=== PATIENT | female | born 1975 | race African-American/Black ===

== ENCOUNTER → 2017-08-25 | Outpatient (CLI) | payer BC ==
--- NOTE | 2017-08-25 12:17 | KCIC ---
DATE: 08/25/2017 EXAM: MAMMO FREDO SCREENING BILATERAL HISTORY: Routine screening COMPARISON: 06/12/2013 This study was interpreted with the benefit of Computerized Aided Detection (CAD). The breast parenchyma shows scattered fibroglandular densities. Breast parenchyma level B. FINDINGS: 2-D and 3-D tomosynthesis imaging was performed in CC and MLO projections. No new or enlarging breast densities are seen. No suspicious microcalcifications are evident. IMPRESSION: There is no mammographic evidence of malignancy in either breast. BI-RADS CATEGORY: 1 NEGATIVE RECOMMENDED FOLLOW-UP: 12M 12 MONTH FOLLOW-UP PQRS compliance statement: Patient information was entered into a reminder system with a target due date for the next mammogram. Mammography is a sensitive method for finding small breast cancers, but it does not detect them all and is not a substitute for careful clinical examination. A negative mammogram does not negate a clinically suspicious finding and should not result in delay in biopsying a clinically suspicious abnormality. "Our facility is accredited by the [employer] Mammography Program."
== END | disposition home or self-care (01) ==
LOC: KCIC MAMMO 09:16
PROVIDERS: ATTEND Internal Medicine
DX: Z12.31 Encounter for screening mammogram for malignant neoplasm of breast (principal)
CPT/HCPCS: 77063; G0202; 77067

== ENCOUNTER → 2019-04-10 | Outpatient (CLI) | payer BC ==
[~2019-04-10] MED LIST: FERR325T14 PO; MULT1TAB52 PO
[2019-04-10 14:59] LABS: BASO # 0.1 x10^3/uL (0.0-0.2); BASO % 1 % (0-3); EOS % 0 % (0-3); HEMATOCRIT 28.6 % (36.0-47.0); HEMOGLOBIN 8.7 g/dL (12.0-15.5); LYMPH # 2.8 x10^3/uL (1.0-4.8); LYMPH % 45 % (24-48); MEAN CORPUSCULAR HEMOGLOBIN 20 pg (25-35); MEAN CORPUSCULAR HGB CONC 30 g/dL (31-37); MEAN CORPUSCULAR VOLUME 66 fL (79-100); MONO # 0.2 x10^3/uL (0.0-1.1); MONO % 4 % (0-9); NEUT # 3.1 x10^3uL (1.8-7.7); NEUT % 50 % (31-73); PLATELET COUNT 188 x10^3/uL (140-400); RED BLOOD COUNT 4.36 x10^6/uL (3.50-5.40); RED CELL DISTRIBUTION WIDTH 18.1 % (11.5-14.5); WHITE BLOOD COUNT 6.2 x10^3/uL (4.0-11.0)
[2019-04-10 15:00] LABS: BILIRUBIN,URINE NEGATIVE (NEG); CLARITY,URINE CLEAR; COLOR,URINE YELLOW; NITRITE,URINE NEGATIVE (NEG); PH,URINE 7.5; PROTEIN,URINE NEGATIVE (NEG-TRACE); UROBILINOGEN,URINE 0.2 mg/dL (0.2 mg/dL)
[2019-04-10 15:24] LABS: BACTERIA,URINE 0 /HPF (0-FEW); RBC,URINE 0 /HPF (0-2); SQUAMOUS EPITHELIAL CELL,UR OCC /LPF; WBC,URINE 0 /HPF (0-4)
[2019-04-10 15:25] LABS: ALBUMIN 3.6 g/dL (3.4-5.0); ALBUMIN/GLOBULIN RATIO 0.9 (1.0-1.7); CALCIUM 8.8 mg/dL (8.5-10.1); CREATININE 0.7 mg/dL (0.6-1.0); GFR 109.5; POTASSIUM 3.7 mmol/L (3.5-5.1); TOTAL BILIRUBIN 0.6 mg/dL (0.2-1.0); TOTAL PROTEIN 7.8 g/dL (6.4-8.2)
--- NOTE | 2019-04-10 15:32 | RAD ---
CHEST PA LATERAL History: Preop Comparison: February 16, 2012 Findings: 2 views of the chest are submitted. There is no infiltrate, pneumothorax, or effusion. Pericardial cardiac silhouette is within normal limits in size. Impression: 1. There is no radiographic evidence of acute cardiopulmonary disease. Electronically signed by: Dereck Holder MD (04/10/2019 3:29 PM) [id number]
[2019-04-10 15:53] LABS: % BANDS 3 % (0-9); % BASOS 2 % (0-3); % LYMPHS 32 % (24-48); % MONOS 3 % (0-10); % SEGS 60 % (35-66); ANISOCYTOSIS SLIGHT; HYPOCHROMIA MARKED; MICROCYTOSIS MARKED; PLT ESTIMATE ADEQUATE (ADEQUATE); POLYCHROMASIA SLIGHT
[2019-04-10 15:54] LABS: OVALOCYTES FEW
== END | disposition home or self-care (01) ==
LOC: SURGPAT 14:13
PROVIDERS: ATTEND Obstetrics & Gynecology
DX: Z01.818 Encounter for other preprocedural examination (principal); Z88.5 Allergy status to narcotic agent; Z88.0 Allergy status to penicillin; Z88.2 Allergy status to sulfonamides
CPT/HCPCS: 36415; 71046; 80053; 81001; 85007; 85025

== ENCOUNTER 2019-04-17 06:19 | Observation (INO) | payer BC ==
[2019-04-17] VITALS (7 sets, daily range): BP systolic 97–118; BP diastolic 51–67
[~2019-04-17] VITALS: Ht 152.4 cm; Wt 51.3 kg
[~2019-04-17 06:19] MED LIST changes: +BUPIVACAINE-EPI 0.25%-1:200000 MPF 30 ML VIAL. ONE; +CLINDAMYCIN 900MG PREMIX 50 ML IV PRN; +ESTROGENS, CONJ VAGINAL CREAM 30GM TUBE. ONE
[2019-04-17] MEDS ORDERED: ONDANSETRON PF 4 MG/2 ML VIAL. ONE (06:54)
[2019-04-17] MEDS ORDERED: LIDOCAINE 2% PF 5 ML VIAL. ONE (06:54)
[2019-04-17] MEDS ORDERED: DEXAMETHASONE SOD PHOS 4 MG/ML VIAL ONE ×2 (06:54→12:01)
[2019-04-17] MEDS ORDERED: ROCURONIUM 50 MG/5 ML VIAL. ONE (06:54)
[2019-04-17] MEDS ORDERED: PROPOFOL 20 ML IV ONE (06:54)
[2019-04-17] MEDS ORDERED: fentaNYL PF VIAL 100 MCG/2 ML VIAL ONE (06:55)
[2019-04-17] MEDS ORDERED: IV RINGERS,LACTATED 1000ML 1,000 ML IV SCH (07:00)
[2019-04-17] MEDS ORDERED: PROCHLORPERAZINE 10 MG/2 ML VIAL. IV PRN (07:00)
[2019-04-17] MEDS ORDERED: ONDANSETRON PF 4 MG/2 ML VIAL. IV PRN ×2 (07:00→09:45)
[2019-04-17] MEDS ORDERED: fentaNYL PF VIAL 100 MCG/2 ML VIAL IV PRN ×2 (07:00)
[2019-04-17] MEDS ORDERED: HYDROmorphone 2 MG/ML VIAL IV PRN (07:00)
[2019-04-17] MEDS ORDERED: LIDOCAINE 1% PF 2 ML VIAL. ID PRN (07:00)
[2019-04-17] MEDS ORDERED: MIDAZOLAM HCL/PF 2 MG/2 ML VIAL. ONE (07:17)
[2019-04-17] MEDS ORDERED: INDIGOTINDISULFONATE SODIUM 40 MG/5 ML AMPUL. IV ONE (07:30)
[2019-04-17] MEDS ORDERED: PHENYLEPHRINE in 0.9% NACL PF 1 MG/10 ML SYRINGE. IV ONE (09:36)
[2019-04-17] MEDS ORDERED: KETOROLAC 30 MG/ML INJ FOR OR. INJ ONE (09:36)
[2019-04-17] MEDS ORDERED: 0.9 % SODIUM CHLORIDE 10 ML DISP.SYRIN. IV PRN (09:45)
[2019-04-17] MEDS ORDERED: LACTULOSE 20 GM/30 ML SOLUTION. PO PRN (09:45)
[2019-04-17] MEDS ORDERED: diphenhydrAMINE HCL 25 MG CAPSULE PO PRN (09:45)
[2019-04-17] MEDS ORDERED: SIMETHICONE 80 MG TAB.CHEW PO PRN (09:45)
[2019-04-17] MEDS ORDERED: ZOLPIDEM 5 MG TABLET. PO PRN (09:45)
[2019-04-17] MEDS ORDERED: MORPHINE SULFATE 2 MG/ML VIAL. IV PRN (09:45)
[2019-04-17] MEDS ORDERED: MAG HYDROX/ALUMINUM HYD/SIMETH 30 ML ORAL.SUSP PO PRN (09:45)
[2019-04-17] MEDS ORDERED: MAGNESIUM HYDROXIDE 2,400 MG/30 ML ORAL.SUSP. PO PRN (09:45)
[2019-04-17] MEDS ORDERED: NALOXONE 0.4 MG/ML VIAL. IV PRN (09:45)
[2019-04-17] MEDS ORDERED: CALCIUM CARBONATE 500 MG TAB.CHEW PO PRN (09:45)
[2019-04-17] MEDS ORDERED: diphenhydrAMINE 50 MG/ML VIAL IV PRN (09:45)
[2019-04-17] MEDS ORDERED: oxyCODONE/APAP 5/325 1 TAB TABLET PO PRN (09:45)
--- NOTE | 2019-04-17 09:53 | PDOC ---
BRIEF OPERATIVE NOTE Date: Apr 17, 2019 Pre-Op Diagnosis menorrhagia, severe anemia, fibroids Post-Op Diagnosis same Procedure Performed LAVH/bilateral salpingectomy Surgeon Dr. Leticia Herrmann Radar Tester Chuy MENDOSA Anesthesiologist Dr. Moses Anesthesia Type: General Blood Loss 150cc IV Fluid 1L Urine Output 200cc clear via gar Specimens Obtained cervix, uterus, bilateral tubes Findings enlarged fibroid uterus, anterior bladder adhesions, normal bilateral ovaries Complications none Operative Note [id number] LETICIA HERRMANN MD Apr 17, 2019 09:53
[2019-04-17] MEDS: MORPHINE SULFATE 2 MG/ML VIAL. IV PRN ×2 (10:01→10:48)
--- NOTE | 2019-04-17 10:32 | OP ---
DATE OF SURGERY: 04/17/2019 PREOPERATIVE DIAGNOSES: Menorrhagia, severe anemia and fibroid uterus, failing endometrial ablation, status post myomectomy in the past as well. POSTOPERATIVE DIAGNOSES: Menorrhagia, severe anemia and fibroid uterus, failing endometrial ablation, status post myomectomy in the past as well. PROCEDURE: Laparoscopic-assisted vaginal hysterectomy, bilateral salpingectomy with adhesiolysis of her bladder to her uterus. SURGEON: Kate Herrmann MD. CHANNEL SALES MANAGER: NAVYA Cohen. ANESTHESIOLOGIST: Dr. Moses. ANESTHESIA: General. ESTIMATED BLOOD LOSS: 150 mL. URINE OUTPUT: 200 mL, clear via Gonzalez catheter. IV FLUIDS: 1 liter of Crystalloid. SPECIMENS: Cervix, uterus, bilateral tubes. FINDINGS: An enlarged fibroid uterus, anterior bladder adhesions. Normal bilateral ovaries. COMPLICATIONS: None. DESCRIPTION OF PROCEDURE: This patient was taken to the operating room where general anesthesia was placed. The patient was placed in a dorsal lithotomy position in [facility]. The patient's abdomen and vagina were prepped and draped in the normal sterile fashion and a Gonzalez had been inserted under sterile technique. Upon my arrival, a timeout was performed. She had received her preoperative antibiotics. Once everyone agreed, a bivalve speculum was placed in the patient's vagina. A single tooth tenaculum was used to grasp the anterior lip of the cervix. A 10 mL of 0.25% Marcaine with epinephrine was used to circumferentially inject around the cervix for both hemodissection and hemostatic purposes later. Once this was done, the Valtchev uterine manipulator was placed through the endocervical os, locked on the single tooth tenaculum and the bivalve speculum was then removed. Top gloves were discarded and changed. Attention was then turned to the abdomen where a small supraumbilical skin incision was made with the scalpel. A curved Esme was used to dissect through the subcuticular layer to the fascia. The 5 mm Visiport was used to directly enter the abdominal cavity. Opening patient pressure was 4 mmHg. Carbon dioxide gas was used to then appropriately insufflate the abdominal cavity to maintain a pressure of 15 mmHg. The patient was placed in Trendelenburg position and initial look was enlarged fibroid uterus, but no obvious bowel adhesions, so at this point right and left lower quadrant ports were placed after transilluminating the abdomen, finding an area clear of any vasculature and placing the 5 mm disposable trocar under direct visualization. Once they were in, 4-5 mL of air was used to insufflate the cuff. At this point, the camera was moved to the lateral port to look at the umbilical port. It was also in and clear, so it was also insufflated with the air on the trocar cuff. The camera was moved back to the midline. The left tube and ovary were elevated and were normal, going above the ovary, below the tube, doing a salpingectomy on this side, crossing the left uterine ovarian pedicle all the way to the left round ligament and starting the bladder flap on the left side. This was done exactly the same on the right, except there was no distal tube on the right. The right ovary was normal. There was just a stump from her previous tubal, so crossing the right round ligament and the right uterine ovarian pedicle and the right mesosalpinx under it was all crossed and then again going down and trying to meet that bladder flap. It was hard to see around the uterus due to the fibroids, and there were some adhesions, but I was able to get it down from the sides to make sure it was clear and get the uterine vessels on both sides and go down posteriorly hugging the cervix, making sure we were down, and we were getting the blood supply to the uterosacral. I was able to then get around once we did that and see some of the anterior bladder peritoneum and get around and take it down as well, but the uterus was blanched, it was free posteriorly, and it was down in back to the uterosacrals. The blood supply was achieved. So at this point, I decided to go vaginally. I removed all instruments from the abdomen and the legs were elevated and the attention was turned vaginally. The single tooth and Valtchev were removed. A weighted speculum was placed in the patient's vagina. Thyroid Rudy clamps were placed on the anterior and posterior lips of the cervix respectively. A scalpel was used to make a circumferential incision in the cervix, a 4 x 4 was used to gently push up the anterior bladder peritoneum. The posterior cul-de-sac was sharply entered with the curved Wells scissors, and 0 Vicryl stitch was used to secure the posterior peritoneum here to the vaginal cuff. Once this was done, the posterior cuff tag was tagged with a curved Esme clamp and the needle was cut and passed off. The short weighted speculum was removed and replaced with the long weighted Clay speculum in the posterior cul-de-sac. Curved Jerson clamps were placed x 2 on the left uterosacral ligament where they were doubly clamped with curved Heaneys, cut with Wells scissors and suture ligated x 2 with 0 Vicryl. Second one was taken through the vaginal cuff securing uterosacral ligament to the vaginal cuff, tagged with a straight Esme clamp and the needle was cut and passed off. This was done exactly the same on the patient's right side, double clamping the uterosacrals with curved Jerson's, cutting with Wells scissors, suture ligating x 2 with 0 Vicryl, taking the second one through the vaginal cuff and tagging it with a straight Esme clamp and cutting and passing the needle off. On the right side, I could see that we were in anteriorly, and I could get around the remaining pedicle with a curved mixture, a right angle clamp and the vaginal LigaSure was used to cauterize and cut the remaining pedicle. The right side was completely free, and I could get around and make sure that the bladder flap was good and that we were in anteriorly until I could get around the remaining pedicle on the left. There was just filmy almost like posterior peritoneum left. So when I went around it, it just broke, so there was nothing to cauterize on this side. I was able to pull the cervix and uterus down. However, I did have to make an incision to try to do a myomectomy, but once I made it and it gave the cervix, uterus, bilateral tubes were delivered in toto and passed off for permanent pathology. The small bowel was low and wanting to come out the vaginal cuff, so a sponge stick was used to push this in. The anterior bladder peritoneum was easily grasped with a long Allis, and a sponge stick was used to examine the pedicles, and they did appear hemostatic. So the long weighted Clay speculum was removed from the posterior cul-de-sac and replaced with the short weighted vaginal speculum. 2-0 Vicryl was taken through the anterior bladder peritoneum, left uterosacral ligament, posterior peritoneum and right uterosacral ligament, thus closing the peritoneum in a pursestring like fashion. Once this was done, the right and left uterosacral tags were clipped as well and the cuff was closed in an anterior to posterior running locked fashion. As I got down on the left side, there was some bleeding right around the uterosacral. So, I was able to get in with smooth pickups and grabbed it and cauterize behind it with excellent results, and there was no more bleeding. I continued to close the cuff and tied it to that posterior cuff tag. The vaginal cuff was completely hemostatic. I used a sponge stick to examine the cuff, and it remained hemostatic. So at this point, all gloves were discarded and changed. Legs were placed back down. The patient was placed back in Trendelenburg and free look above. Gas was reinsufflated. A second look from above revealed a really good hemostasis. She just have some kind of friable areas on the anterior bladder peritoneum on the right side where some of the adhesions were. Initially, we tried to use Tisseel, but it did not spray that well due to the tip, so I put Saeid over it with excellent results. It remained white and powdery, nothing welled up. I even released some of the gas in the air, and it did not do anything. There was no bleeding coming through it, remained white and powdery, so Saeid was placed over the pedicles. The two ovaries looked good. The right and left pericolic gutters were clear. Copious irrigation before placing the Saeid revealed hemostasis everywhere else and clear fluid returned on irrigation, so again Saeid was placed with excellent results. Gas was taken out of all 3 trocars. The right and left lower quadrant ports were removed under direct visualization. These too were hemostatic. Saeid remained white and powdery on the cuff, so gas was released from the umbilical port. All three port sites were then closed with 4-0 nylon at the level of the skin and injected with local. The patient was then awakened from anesthesia and brought to recovery room in stable condition. KATE HERRMANN MD DR: CASSY/kathy JOB#: [id number] / [id number]
[2019-04-17 10:58] LABS: HEMATOCRIT 27.8 % (36.0-47.0); HEMOGLOBIN 8.3 g/dL (12.0-15.5); RED BLOOD COUNT 4.13 x10^6/uL (3.50-5.40); RED CELL DISTRIBUTION WIDTH 20.7 % (11.5-14.5); WHITE BLOOD COUNT 7.5 x10^3/uL (4.0-11.0)
[2019-04-17] MEDS ORDERED: SEVOFLURANE 61 TO 120 MINUTES. IH ONE (11:05)
[2019-04-17] MEDS: FERROUS SULFATE 325 MG TABLET. PO SCH (12:00)
[2019-04-17] MEDS ORDERED: HYDROcodone/APAP 5/325MG 1 TAB TABLET PO PRN (12:00)
[2019-04-17] MEDS: HYDROcodone/APAP 5/325MG 1 TAB TABLET PO PRN ×2 (14:14→20:17)
[2019-04-18 01:04] VITALS: BP 118/75
[2019-04-18] MEDS: HYDROcodone/APAP 5/325MG 1 TAB TABLET PO PRN ×3 (01:06→09:47)
[2019-04-18 06:06] VITALS: BP 120/72
[2019-04-18 07:43] LABS: CALCIUM 8.3 mg/dL (8.5-10.1); CREATININE 0.7 mg/dL (0.6-1.0); GFR 109.5
--- NOTE | 2019-04-18 08:30 | NUR ---
pt hct [address] Anderson. orthostatic blood pressures ordered and text to dr anderson pt may be discharged to home with iron supplement no tachycardia
[2019-04-18 08:40] VITALS: BP 103/68
[2019-04-18 08:45] VITALS: BP 119/71
[2019-04-18 08:50] VITALS: BP 117/71
[2019-04-18] MEDS: FERROUS SULFATE 325 MG TABLET. PO SCH (09:47)
[2019-04-18 10:46] VITALS: BP 107/69
--- NOTE | 2019-04-18 10:51 | PDOC ---
SURGICAL PROGRESS NOTE Subjective Doing well without complaints. Discussed anemia and pt will take bid iron with meals. She does not want blood and is asymptomatic with a normal drop postoperatively. She is tolerating a regular diet without n/v, ambulating well and voiding without a catheter desiring to go home Vital Signs Vital Signs Date Time Temp Pulse Resp B/P (MAP) Pulse Ox O2 Delivery O2 Flow Rate FiO2 04/18/19 10:46 98.2 79 18 107/69 (82) 94 Room Air 98.2 04/17/19 11:15 10.0 I&O Intake and Output 04/18/19 07:00 Intake Total 2550 ml Output Total 350 ml Balance 2200 ml Intake Oral 1000 ml IV Total 1550 ml Output Urine Total 200 ml Estimated Blood Loss 150 ml # Voids 3 # Bowel Movements 1 PATIENT HAS A REY: No General: Alert, Oriented X3, Cooperative, No acute distress HEENT: Atraumatic Heart: Regular rate Abdomen: Soft, No tenderness, Other (all port sites c/d/i) Extremities: No clubbing, No cyanosis, No edema, No tenderness/swelling Skin: No rashes, No breakdown Neuro: Normal speech Psych/Mental Status: Mental status NL, Mood NL Labs Laboratory Tests Test 04/17/19 06:39 04/17/19 10:27 04/18/19 06:35 Bedside Urine HCG, Qualitative Hcg negative (Negative) White Blood Count 7.5 x10^3/uL (4.0-11.0) Red Blood Count 4.13 x10^6/uL (3.50-5.40) Hemoglobin 8.3 g/dL (12.0-15.5) Hematocrit 27.8 % (36.0-47.0) 22.0 % (36.0-47.0) Mean Corpuscular Volume 67 fL (79-100) Mean Corpuscular Hemoglobin 20 pg (25-35) Mean Corpuscular Hemoglobin Concent 30 g/dL (31-37) Red Cell Distribution Width 20.7 % (11.5-14.5) Platelet Count 283 x10^3/uL (140-400) Sodium Level 136 mmol/L (136-145) Potassium Level 4.0 mmol/L (3.5-5.1) Chloride Level 104 mmol/L (98-107) Carbon Dioxide Level 24 mmol/L (21-32) Anion Gap 8 (6-14) Blood Urea Nitrogen 6 mg/dL (7-20) Creatinine 0.7 mg/dL (0.6-1.0) Estimated GFR (Cockcroft-Gault) 109.5 Glucose Level 107 mg/dL (70-99) Calcium Level 8.3 mg/dL (8.5-10.1) Laboratory Tests Test 04/18/19 06:35 Hematocrit 22.0 % (36.0-47.0) Sodium Level 136 mmol/L (136-145) Potassium Level 4.0 mmol/L (3.5-5.1) Chloride Level 104 mmol/L (98-107) Carbon Dioxide Level 24 mmol/L (21-32) Anion Gap 8 (6-14) Blood Urea Nitrogen 6 mg/dL (7-20) Creatinine 0.7 mg/dL (0.6-1.0) Estimated GFR (Cockcroft-Gault) 109.5 Glucose Level 107 mg/dL (70-99) Calcium Level 8.3 mg/dL (8.5-10.1) I have reviewed the following labs,vitals, nursing; orthostatic bp/pulse all stable lying, sitting and standing Pulmonary: No pertinent hx GI: No pertinent hx Heme/Onc: Anemia NOS Assessment/Plan POD#1 s/p LAVH/bilateral salpingectomy Routine PO care d/c to home NPV x 6 weeks light/limited x [address] while on narcotic pain meds keep scheduled follow up in one week Narcotic meds written, ok for OTC ibuprofen as needed as well Iron bid with food call or return sooner for any other questions or concerns not limited to but including pain unrelieved with pain meds, increased or unexplained vaginal bleeding or T>100.4 KATE WESTBROOK MD Apr 18, 2019 10:51
--- NOTE | 2019-04-18 10:56 | PDOC3 ---
Discharge Summary Visit Information Date of Admission: Apr 17, 2019 Date of Discharge: Apr 18, 2019 Final Diagnosis anemia with menorrhagia and enlarged fibroid uterus Brief Hospital Course Allergies Allergies Coded Allergies Type Severity Reaction Last Updated Verified Penicillins Allergy Mild Nausea and Vomiting 04/17/19 Yes Sulfa (Sulfonamide Antibiotics) Allergy Mild Nausea and Vomiting 04/17/19 Yes codeine Allergy Mild Nausea and Vomiting 04/17/19 Yes Vital Signs Vital Signs Date Time Temp Pulse Resp B/P (MAP) Pulse Ox O2 Delivery O2 Flow Rate FiO2 04/18/19 10:46 98.2 79 18 107/69 (82) 94 Room Air 98.2 04/17/19 11:15 10.0 Lab Results Laboratory Tests Test 04/17/19 06:39 04/17/19 10:27 04/18/19 06:35 Bedside Urine HCG, Qualitative Hcg negative (Negative) White Blood Count 7.5 x10^3/uL (4.0-11.0) Red Blood Count 4.13 x10^6/uL (3.50-5.40) Hemoglobin 8.3 g/dL (12.0-15.5) Hematocrit 27.8 % (36.0-47.0) 22.0 % (36.0-47.0) Mean Corpuscular Volume 67 fL (79-100) Mean Corpuscular Hemoglobin 20 pg (25-35) Mean Corpuscular Hemoglobin Concent 30 g/dL (31-37) Red Cell Distribution Width 20.7 % (11.5-14.5) Platelet Count 283 x10^3/uL (140-400) Sodium Level 136 mmol/L (136-145) Potassium Level 4.0 mmol/L (3.5-5.1) Chloride Level 104 mmol/L (98-107) Carbon Dioxide Level 24 mmol/L (21-32) Anion Gap 8 (6-14) Blood Urea Nitrogen 6 mg/dL (7-20) Creatinine 0.7 mg/dL (0.6-1.0) Estimated GFR (Cockcroft-Gault) 109.5 Glucose Level 107 mg/dL (70-99) Calcium Level 8.3 mg/dL (8.5-10.1) Laboratory Tests Test 04/18/19 06:35 Hematocrit 22.0 % (36.0-47.0) Sodium Level 136 mmol/L (136-145) Potassium Level 4.0 mmol/L (3.5-5.1) Chloride Level 104 mmol/L (98-107) Carbon Dioxide Level 24 mmol/L (21-32) Anion Gap 8 (6-14) Blood Urea Nitrogen 6 mg/dL (7-20) Creatinine 0.7 mg/dL (0.6-1.0) Estimated GFR (Cockcroft-Gault) 109.5 Glucose Level 107 mg/dL (70-99) Calcium Level 8.3 mg/dL (8.5-10.1) Brief Hospital Course Ms. Mckenzie is a 44 old female who presented with chronic anemia with menorrhagia and enlarged symptomatic fibroid uterus desiring definitive therapy. She underwent and LAVH with bilateral salpingectomy yesterday without complications. She has had an unremarkable postoperative course. She is anemic, but started severely anemic, stable asymptomatic ambulating well, orthostatics ok. Wants to go home voiding without catheter, tolerating a regular diet without N/v and tolerating PO pain meds with minimal pain and no vag bleeding. Discharge Information Condition at Discharge: Stable Follow Up: Weeks Disposition/Orders: D/C to Home Scheduled Ferrous Sulfate (Ferrous Sulfate) 325 Mg Tablet, 325 MG PO PRN for anemia, (Reported) Entered as Reported by: RADHA SINCLAIR on 04/10/19 143 Last Action: Continued on 04/17/19729 by KATE WESTBROOK Multivitamin (Multivitamins) 1 Each Tablet, 1 TAB PO DAILY for vitamin, #90 Ref 3 (Reported) Entered as Reported by: RADHA SINCLAIR on 04/10/191429 Last Action: HELD on 04/17/19729 by KATE WESTBROOK Patient Instructions Patient Instructions POD#1 s/p LAVH/bilateral salpingectomy Routine PO care d/c to home NPV x 6 weeks light/limited x [address] while on narcotic pain meds keep scheduled follow up in one week Narcotic meds written, ok for OTC ibuprofen as needed as well Iron bid with food call or return sooner for any other questions or concerns not limited to but including pain unrelieved with pain meds, increased or unexplained vaginal bleeding or T>100.4 KATE WESTBROOK MD Apr 18, 2019 10:56
[2019-04-18] MEDS ORDERED: FERR325T14 PO ×2 (12:15→12:51)
--- NOTE | 2019-04-19 17:06 | PATHOLOGY ---
[facility] Accession Number: [id number] . 01 Material submitted: . uterus - CERVIX, UTERUS, BILATERAL TUBES . 01 Clinical history: . Fibroids . 02 Diagnosis: Uterus and attached bilateral fallopian tube stumps, hysterectomy: - Leiomyomas, uterine corpus, subserosal and intramural, multiple, the largest measuring 3.4 cm in greatest dimension (uterine weight 208 grams). - Focal endometriosis of uterine cervix. - Secretory endometrium. - Adenomyosis, uterine corpus, sub-basal, focal. - Mild hydrosalpinx of bilateral proximal tubal stumps. (LAITHM:harriett; 04/19/2019) MBR/04/19/2019 . 02 Comment: There is no atypia or evidence of malignancy. (JAVIER:harriett; 04/19/2019) . 02 Electronically signed: . Jose Muniz MD, Pathologist NPI- [id number] . 01 Gross description: . The specimen is received in formalin labeled "Rennya Mckenzie, cervix, uterus, bilateral tubes". Received is a 208 g, 8.1 x 6.5 x 5.9 cm distorted uterus with attached cervix and attached fallopian tube stumps weighing 1 g each. The uterine serosa is light rodriguez in appearance with several serosal nodules ranging in size from 0.2 to 2.8 cm. The 0.8 cm cervical os is surrounded by pale rodriguez, smooth to shaggy ectocervical mucosa. The uterus is oriented using the peritoneal reflection and the anterior paracervical margin is inked black. The uterus is opened laterally to reveal a pale rodriguez endocervical canal measuring 2.6 cm in length. The endometrial cavity is triangular measuring 5.1 cm in length by 3.3 cm in width. The endometrium is pale rodriguez to pink-rodriguez, glistening in appearance and measures 0.1 cm in thickness. Serial sectioning reveals a rodriguez-pink, trabeculated myometrium measuring up to 4.8 cm in thickness displaying multiple subserosal and intramural fibroids ranging in size from 0.4 to 3.4 cm in maximum dimensions. . The left non-fimbriated fallopian tube stump measures 1.5 cm in length by 0.5 cm in diameter. Fimbria are noted, however, are very loosely attached by adhesions. The serosal surface is inked black. Sectioning reveals a patent lumen. . The right non-fimbriated fallopian tube stump measures 2.4 cm in length by 0.6 cm in diameter. Sectioning reveals a dilated lumen. The specimen is submitted representatively as follows: . A1 12:00 cervix A2 6:00 cervix A3 serosal nodules A4 anterior endomyometrium A5 posterior endomyometrium A6-A7 rental sales representative sections of subserosal and intramural fibroids A8 rental sales representative sections from each fallopian tube stump, differentially inked. (CAA; 04/18/2019) QAC/QAC . 02 Pathologist provided ICD-10: D25.1, D25.2, N80.0, N70.11 . 02 CPT . 480374 Specimen Comment: A courtesy copy of this report has been sent to Specimen Comment: [phone], . Specimen Comment: Report sent to / DR RUIZ Performed at: 01 [facility] [address], [place] [id number] MD Naresh Smith MD Phone: [phone] Performed at: 02 [facility] [address] [place], [place] [id number] MD Jose Muniz MD Phone: [phone]
== END 2019-04-18 12:30 | disposition home or self-care (01) ==
LOC: SURG 06:19 → 3 NORTH 10:14
PROVIDERS: ADMIT Obstetrics & Gynecology; ATTEND Obstetrics & Gynecology
PROC: 0UT9FZZ Resection of Uterus, Via Natural or Artificial Opening With Percutaneous Endoscopic Assistance (ICD-10-PCS; principal; 2019-04-17 07:30)
DX: D25.1 Intramural leiomyoma of uterus (principal); N92.0 Excessive and frequent menstruation with regular cycle; F17.210 Nicotine dependence, cigarettes, uncomplicated; Z83.3 Family history of diabetes mellitus; Z80.3 Family history of malignant neoplasm of breast; Z80.42 Family history of malignant neoplasm of prostate; Z98.890 Other specified postprocedural states
CPT/HCPCS: 36415; 58550; 80048; 81025; 85014; 85027; 86850; 86900; 86901; 86920; A7015; G0378; G0379; J0780; J1100; J1885; J1956; J2001; J2250; J2270; J2370; J2405; J2704; J3010; J3490; J7030; J7120

== ENCOUNTER → 2019-08-08 | Outpatient (CLI) | payer BC ==
[~2019-08-08] MED LIST changes: -BUPIVACAINE-EPI 0.25%-1:200000 MPF 30 ML VIAL. ONE; -CLINDAMYCIN 900MG PREMIX 50 ML IV PRN; -ESTROGENS, CONJ VAGINAL CREAM 30GM TUBE. ONE
--- NOTE | 2019-08-08 18:49 | KCIC ---
Bilateral digital screening mammograms with 3-D tomosynthesis: Reason for examination: Routine screening. Comparison is made to previous studies dated 08/25/2017 and 06/12/2013. Bilateral mammograms in CC and oblique projections were obtained with 2-D imaging and 3-D tomosynthesis imaging on a Siemens Inspiration unit and reviewed on the workstation. Interpretation was made with the benefit of CAD. The skin and nipples show no abnormalities. No abnormal axillary lymph nodes are seen. The breast parenchyma shows scattered fatty and fibroglandular density. (Breast density: Category B.) There are no dominant masses, suspicious calcifications or architectural distortion. Impression: No evidence of malignancy. Recommend routine screening. BI-RAD Category 1: Negative. "Our facility is accredited by the [employer] Mammography Program." This patient's information has been entered into a reminder system for the patient to be notified with the results of her examination and a target date for the next mammogram. Electronically signed by: Lynn Pham MD (08/08/2019 6:46 PM) [id number]
== END | disposition home or self-care (01) ==
LOC: KCIC MAMMO 15:35
PROVIDERS: ATTEND Internal Medicine
DX: Z12.31 Encounter for screening mammogram for malignant neoplasm of breast (principal)
CPT/HCPCS: 77063; 77067

== ENCOUNTER 2020-08-17 14:55 | Emergency (ER) | payer BC ==
[~2020-08-17 14:55] MED LIST changes: +MULT-445 PO; -MULT1TAB52 PO
[2020-08-17 15:41] LABS: BILIRUBIN,URINE NEGATIVE (NEG); CLARITY,URINE CLEAR; COLOR,URINE YELLOW; NITRITE,URINE NEGATIVE (NEG); PH,URINE 5.5 (<5.0-8.0); PROTEIN,URINE NEGATIVE (NEG-TRACE); UROBILINOGEN,URINE 0.2 mg/dL (0.2 mg/dL)
[2020-08-17 15:53] LABS: BACTERIA,URINE FEW /HPF (0-FEW); RBC,URINE OCC /HPF (0-2); WBC,URINE OCC /HPF (0-4)
== END 2020-08-17 17:32 | disposition left against medical advice (07) ==
LOC: ER 14:55
DX: M54.9 Dorsalgia, unspecified (principal); Z53.21 Procedure and treatment not carried out due to patient leaving prior to being seen by health care provider
CPT/HCPCS: 81001; 81025

== ENCOUNTER → 2021-04-14 | Outpatient (CLI) | payer BC ==
--- NOTE | 2021-04-15 13:01 | KCIC ---
BILATERAL SCREENING MAMMOGRAM, 3-D History: Routine screening. Comparison: Bilateral mammogram August 08, 2019. Technique: MLO and CC digital tomosynthesis (3D) images obtained. Radiologist reviewed these images on dedicated workstation. Findings: Breast Tissue Density B : There are scattered areas of fibroglandular density. There are no dominant masses, suspicious microcalcifications or architectural distortion. IMPRESSION: No mammographic evidence of malignancy. Recommend routine screening. BI-RADS category 1: Negative. The images were reviewed with computer-aided detection. Patient information is entered into reminder system with a target due date for the next screening [facility]. Mammography is the most sensitive method for finding small breast cancers, but it does not detect the m all and is not a substitute for careful clinical examination. A negative mammogram does not negate a clinically suspicious finding and should not result in delay in biopsying a clinically suspicious a bnormality. "Our facility is accredited by the [employer] Mammography [employer]." Electronically signed by: Christian Erickson MD (04/15/2021 12:59 PM) [id number]
== END ==
LOC: KCIC MAMMO 15:25
PROVIDERS: ATTEND Internal Medicine
DX: Z12.31 Encounter for screening mammogram for malignant neoplasm of breast (principal)
CPT/HCPCS: 77063; 77067